=== PATIENT | male | born 1960 | race Caucasian/White ===

== ENCOUNTER 2023-04-06 10:07 | Emergency (ER) | payer MEDICARE ==
[~2023-04-06] VITALS: Ht 167.6 cm; Wt 97.1 kg
[~2023-04-06 10:07] MED LIST: ALBUHFA IH; LANS15CA14 PO; TYL3 PO
[2023-04-06] MEDS ORDERED: GUAIFENESIN 600 MG TABLET.ER PO ONE (11:00)
[2023-04-06] MEDS ORDERED: IPRATROPIUM/ALBUTEROL SULFATE 3 ML SOLUTION IH ONE (11:00)
[2023-04-06] MEDS ORDERED: BENZONATATE 100 MG CAPSULE PO ONE (11:00)
[2023-04-06 11:20] VITALS: PULSE 70; RESP 18
[2023-04-06 11:27] LABS: BASOPHILS # (AUTO) 0.08 K/uL (0.00-0.20); BASOPHILS % (AUTO) 1.3 % (0.0-5.0); EOSINOPHILS # (AUTO) 0.26 K/uL (0.00-0.70); EOSINOPHILS % (AUTO) 4.4 % (0.0-8.0); HEMATOCRIT 44.4 % (42-54); IMMATURE GRANULOCYTE ABSOLUTE 0.03 K/uL (0-1); LYMPHOCYTES # (AUTO) 1.7 K/uL (1.0-4.8); LYMPHOCYTES % (AUTO) 28.8 % (21.0-51.0); MEAN CORPUSCULAR HEMOGLOBIN 30.8 pg (27.0-33.0); MEAN CORPUSCULAR HGB CONC 34.2 g/dL (32.0-36.0); MEAN CORPUSCULAR VOLUME 90.1 fL (79-99); MONOCYTES # (AUTO) 0.5 K/uL (0.1-1.0); MONOCYTES % (AUTO) 7.7 % (3.0-13.0); NEUTROPHILS # (AUTO) 3.4 K/uL (1.8-7.7); NEUTROPHILS % (AUTO) 57.3 % (40.0-77.0); PLATELET COUNT (AUTO) 165 K/uL (130-400); RED BLOOD CELL COUNT(AUTO) 4.93 MIL/uL (4.50-6.20); RED CELL DISTRIBUTION WIDTH 13.3 % (11.0-15.5); WHITE BLOOD COUNT (AUTO) 5.9 K/uL (4.8-10.8)
[2023-04-06 11:44] LABS: SARS-CoV-2, RNA, NAAT NEGATIVE SARS CoV-2 (NEGATIVE)
[2023-04-06 11:45] LABS: CREATININE 0.9 mg/dL (0.5-1.5); POTASSIUM 3.7 mmol/L (3.5-5.1)
[2023-04-06 11:49] LABS: ALBUMIN 3.6 g/dL (3.5-5.0); BILIRUBIN,TOTAL 0.4 mg/dL (0.2-1.0); TOTAL PROTEIN, SERUM 6.7 g/dL (6.0-8.3)
[2023-04-06 11:49] LABS: INFLUENZA TYPE A Negative For Type A (NEGATIVE); INFLUENZA TYPE B Negative For Type B (NEGATIVE)
[2023-04-06 11:55] LABS: B-TYPE NATRIURETIC PEPTIDE < 5 pg/mL (0-100)
[2023-04-06] MEDS ORDERED: IOHEXOL 350 MG/ML 100ML INFUS..BTL IV ONE (13:21)
[2023-04-06 15:00] VITALS: BP 121/78; PULSE 69; RESP 16; O2SAT 97
[2023-04-06] MEDS ORDERED: LEVAHFA IH (15:06)
[2023-04-06] MEDS ORDERED: BENZ-39 PO (15:06)
== END 2023-04-06 15:38 | disposition home or self-care (01) ==
LOC: EDH 10:07
DX: R05.9 Cough, unspecified (principal); R06.02 Shortness of breath; R79.89 Other specified abnormal findings of blood chemistry; R06.2 Wheezing; K21.9 Gastro-esophageal reflux disease without esophagitis; Z20.822 Contact with and (suspected) exposure to COVID-19
CPT/HCPCS: 99285; 74174; 71275; 71045; 87635; 84484; 80053; 83880; 85025; 85378; 87804 ×2; 36415; 93005; 94640; C9803; Q9967

== ENCOUNTER → 2023-08-05 | Outpatient (CLI) | payer MEDICARE ==
[~2023-08-05] MED LIST changes: +BENZ-39 PO; +GADOTERATE MEGLUMINE 10 MMOL/20 ML VIAL IV ONE; +LEVAHFA IH
== END | disposition home or self-care (01) ==
LOC: RAH 08:38
PROVIDERS: ATTEND Internal Medicine
DX: N28.1 Cyst of kidney, acquired (principal); R93.2 Abnormal findings on diagnostic imaging of liver and biliary tract; K76.89 Other specified diseases of liver
CPT/HCPCS: 74183; A9575

== ENCOUNTER → 2023-08-31 | Outpatient (CLI) | payer MEDICARE ==
[~2023-08-31] MED LIST changes: -GADOTERATE MEGLUMINE 10 MMOL/20 ML VIAL IV ONE
== END | disposition home or self-care (01) ==
LOC: RAH 12:37
PROVIDERS: ATTEND Internal Medicine Gastroenterology
DX: R13.10 Dysphagia, unspecified (principal); K21.9 Gastro-esophageal reflux disease without esophagitis
CPT/HCPCS: 74230; 92611

== ENCOUNTER 2023-11-08 08:58 | Emergency (ER) | payer MEDICARE ==
[~2023-11-08] VITALS: Ht 167.6 cm; Wt 97.1 kg
[2023-11-08 09:00] VITALS: BP 146/77; PULSE 79; RESP 16
[2023-11-08 10:07] LABS: COVID19 (SARS ANTIGEN RAPID) PRESUMPTIVE NEGATIVE (NEGATIVE)
[2023-11-08 10:12] LABS: INFLUENZA TYPE A NEGATIVE FOR TYPE A (NEG)
[2023-11-08 10:13] LABS: INFLUENZA TYPE B NEGATIVE FOR TYPE B (NEG)
[2023-11-08] MEDS ORDERED: DOXY100C5 PO (10:45)
== END 2023-11-08 11:14 | disposition home or self-care (01) ==
LOC: EDH 08:58
DX: R05.3 Chronic cough (principal); K21.9 Gastro-esophageal reflux disease without esophagitis; G89.29 Other chronic pain; Z88.0 Allergy status to penicillin; Z88.8 Allergy status to other drugs, medicaments and biological substances; Z20.822 Contact with and (suspected) exposure to COVID-19
CPT/HCPCS: 71045; 87426; 87804